=== PATIENT | male | born 1970 | race Caucasian/White ===

== ENCOUNTER 2017-01-08 08:54 | Day surgery (SDC) | payer BC ==
--- NOTE | 2017-01-07 17:35 | PCM.PREANE ---
<Zak Ruiz E - Last Filed: 01/07/17 17:34> Preanesthetic Assessment - ANESTHESIA/TRANSFUSION/FAMILY HX Anesthesia/Transfusion History: Prior Anesthesia Family History of Anesthesia Reaction: No - REVIEW OF SYSTEMS Constitutional: Reports: no symptoms APRON WORKER: Reports: no symptoms Respiratory: Reports: no symptoms Cardiovascular: Reports: no symptoms GI: Reports: no symptoms Other: Reports: none - PHYSICAL ASSESSMENT Vital Signs: Last Vital Signs Temp 36.2 C 01/08/17 09:50 Pulse 74 01/08/17 09:50 Resp 16 01/08/17 09:50 BP 139/86 01/08/17 09:50 Pulse Ox 95 01/08/17 09:50 Height: 1.83 m Weight: 111.13 kg ASA Class: 2 - ALLERGIES Allergies/Adverse Reactions: Allergies Allergy/AdvReac Type Severity Reaction Status Date / Time No Known Allergies Allergy Verified 01/05/17 09:28 - ANESTHESIA PLAN Anesthesia Type Planned: MAC - ACKNOWLEDGEMENTS Pt an appropriate candidate for the planned anesthesia: Yes Alternatives and risks of anesthesia discussed w pt/guardian: Yes Pt/Guardian understands and agree with anesthesia plan: Yes PreAnesthesia Questionnaire Other HEENT History: top retainer Cardiovascular History: Reports: None Respiratory History: Reports: Other (see below) Other Respiratory History: states "I get winded at times" Gastrointestinal History: Reports: None Genitourinary History: Reports: None Musculoskeletal History: Reports: Fracture Other Musculoskeletal History: surgery for fx arm with plates Neurological History: Reports: None Psychiatric History: Reports: None Endocrine/Metabolic History: Reports: Obesity/BMI 30+ Hematologic History: Reports: None Immunologic History: Reports: None Oncologic (Cancer) History: Reports: None Dermatologic History: Reports: None - Infectious Disease History Infectious Disease History: Reports: None - Past Surgical History Head Surgeries/Procedures: Reports: None HEENT Surgical History: Reports: Adenoidectomy, Tonsillectomy - SUBSTANCE USE Smoking Status *Q: Former Smoker Recreational Drug Use History: No - HOME MEDS Home Medications: Home Meds Multivitamin [Multivitamins] 1 tab PO DAILY 01/05/17 [History] - CURRENT (IN HOUSE) MEDS Current Meds: Current Medications Lactated Ringer's (Ringers, Lactated) 1,000 mls @ 125 mls/hr IV ASDIRECTED [facility] Last Admin: 01/08/17 09:54 Dose: 125 mls/hr Sodium Chloride (Saline Flush) 10 ml FLUSH ASDIRECTED PRN PRN Reason: Keep Vein Open Sodium Chloride (Saline Flush) 2.5 ml FLUSH ASDIRECTED PRN PRN Reason: Keep Vein Open <Zak Cho - Last Filed: 01/08/17 10:19> Preanesthetic Assessment - ANESTHESIA/TRANSFUSION/FAMILY HX Anesthesia/Transfusion History: Prior Anesthesia Family History of Anesthesia Reaction: No - REVIEW OF SYSTEMS Constitutional: Reports: no symptoms APRON WORKER: Reports: no symptoms Respiratory: Reports: no symptoms Cardiovascular: Reports: no symptoms GI: Reports: no symptoms Other: Reports: none - PHYSICAL ASSESSMENT ASA Class: 1 Mental Status: alert & oriented x3 Airway Class: Mallampati = 2 Dentition: Reports: normal dentition ROM/Head Extension: full Respiratory Status: lungs clear to auscultation bilaterally Cardiovascular Status: regular rate & rhythm, normal S1, S2, no murmur - BLOOD Blood Available: No - ANESTHESIA PLAN Preop Beta Lupillo: No Anesthesia Type Planned: MAC - ACKNOWLEDGEMENTS Pt an appropriate candidate for the planned anesthesia: Yes Alternatives and risks of anesthesia discussed w pt/guardian: Yes Pt/Guardian understands and agree with anesthesia plan: Yes PreAnesthesia Questionnaire Other Cardiovascular History: hx of borderline HTN, never on meds for HTN
[~2017-01-08 08:54] MED LIST: Lactated Ringers 1,000 ML IV SCH; Sodium Chloride 0.9% 10 ML Syringe FLUSH PRN; Sodium Chloride 0.9% 2.5 ML Syringe FLUSH PRN
[2017-01-08] MEDS ORDERED: Propofol 200 MG/20 ML SDV ONE ×2 (11:04→11:16)
[2017-01-08] MEDS ORDERED: Lidocaine 2% 5 ML SDV ONE (11:04)
[2017-01-08] MEDS ORDERED: fentaNYL 100 MCG/2 ML SDV ONE (11:04)
[2017-01-08] MEDS ORDERED: Midazolam 1 MG/ML 2 ML SDV ONE (11:04)
--- NOTE | 2017-01-08 11:14 | PCM.POSTAN ---
POST ANESTHESIA ASSESSMENT - MENTAL STATUS Mental Status: alert, oriented - RESPIRATORY Respiratory Status: respiratory rate WNL - CARDIOVASCULAR CV Status: pulse rate WNL - GASTROINTESTINAL GI Status: no symptoms - POST OP HYDRATION Hydration Status: adequate & stable
--- NOTE | 2017-01-08 11:25 | PCM.OPNOTE ---
- General Post-Op/Procedure Note Date of Surgery/Procedure: 01/08/17 Operative Procedure(s): Screening colonoscopy Findings: 1mm sessile rectal polyp Pre Op Diagnosis: Screening colonoscopy Post-Op Diagnosis: Rectal polyp Anesthesia Technique: MAC Primary Surgeon: Abigail Alejandre Condition: Good
--- NOTE | 2017-01-08 12:28 | PCM48HPAN ---
Post Anesthesia Note - EVALUATION WITHIN 48HRS OF ANESTHETIC Vital Signs in Normal Range: Yes Patient Participated in Evaluation: Yes Respiratory Function Stable: Yes Airway Patent: Yes Cardiovascular Function Stable: Yes Hydration Status Stable: Yes Pain Control Satisfactory: Yes Nausea and Vomiting Control Satisfactory: Yes Mental Status Recovered: Yes
--- NOTE | 2017-01-08 18:48 | OR ---
SURGEON: CASIMIRO MONSON MD DATE OF PROCEDURE: 01/08/2017 PREOPERATIVE DIAGNOSIS: Screening colonoscopy in family history of colon cancer. POSTOPERATIVE DIAGNOSIS: Screening colonoscopy in family history of colon cancer. PROCEDURE PERFORMED: Screening colonoscopy. INSTRUMENT USED: Olympus colonoscope. ANESTHESIA: MAC. EXTENT OF EXAM: To the cecum. PREPARATION: Good. LIMITATIONS: None. INDICATIONS: The patient is a 46-year-old male with a past medical history significant for his mother dying in her early 50s of colon cancer. Given this, the patient needs to undergo a screening colonoscopy. We discussed the procedure as well as expected perioperative course. We discussed the risks, including bleeding, infection or damage to surrounding structures, including perforation. The patient verbalized understanding and wishes to proceed. PROCEDURE IN DETAIL: The patient was brought to the endoscopy suite and placed in the left lateral decubitus position. A time-out was completed verifying the patient's name, age, date of , allergies, and procedure to be performed. Monitored anesthesia care was induced and continuous oxygen was provided via face mask throughout the duration of the procedure. After adequate sedation was achieved, a digital rectal exam was performed. This examination was within normal limits. A well lubricated colonoscope was then inserted in the rectum and advanced under direct visualization to the level of cecum. The cecum was identified by both visual and anatomic landmarks. A photograph was taken of the cecal cap as well as with retroflexion of the scope within the cecum. The scope was then fully withdrawn while examining the color, texture, anatomy, and integrity of the mucosa from the cecum to the anal canal. The findings were consistent with normal colonic mucosa. The scope was then brought into the rectum and retroflexed to allow visualization of the anal canal opening. With this maneuver, a small pedunculated 1 cm polyp was noted within the rectum close to the anal canal. This was removed using cold biopsy forceps. The scope was then straightened out and removed from the patient. The procedure was terminated and the patient was transferred to the recovery room in stable condition. The cecum to anus time was 11 minutes. ENDOSCOPIC DIAGNOSIS: Rectal polyp. RECOMMENDATION: Follow up in clinic in 2 weeks. BRAVO BLACKMON /[id number] SCOT
== END 2017-01-08 11:54 | disposition home or self-care (01) ==
LOC: MW.SDS 08:54
PROVIDERS: ATTEND Surgery
PROC: 0DBP8ZZ Excision of Rectum, Via Natural or Artificial Opening Endoscopic (ICD-10-PCS; principal; 2017-01-08)
DX: Z12.11 Encounter for screening for malignant neoplasm of colon (principal); Z80.0 Family history of malignant neoplasm of digestive organs; D12.8 Benign neoplasm of rectum
CPT/HCPCS: 45380; 88305; J2250; J3010; J7120; J2704

== ENCOUNTER 2018-06-24 10:25 | Emergency (ER) | payer BC ==
--- NOTE | 2018-06-24 10:41 | EDM.PDOC ---
ED HPI GENERAL MEDICAL PROBLEM - General Chief Complaint: Laceration Stated Complaint: LT HAND PINKY CUT Time Seen by Provider: 06/24/18 10:38 Source of Information: Reports: Patient History Limitations: Reports: No Limitations - History of Present Illness INITIAL COMMENTS - FREE TEXT/NARRATIVE: HISTORY AND PHYSICAL: []48-year-old male presenting with amputation to the tip of his left fifth finger History of Present Illness: []Patient was loading his boat last night and somehow caught his finger tip Denies any pain at this time Review of Systems: As per history of present illness and below otherwise all systems reviewed and negative. Past medical history: As per history of present illness and as reviewed below otherwise noncontributory. Surgical history: As per history of present illness and as reviewed below otherwise noncontributory. Social history: No reported history of drug or alcohol abuse. Family history: As per history of present illness and as reviewed below otherwise noncontributory. Physical exam: Alert gentleman who answers questions appropriately in full sentences without any shortness of breath nontoxic in appearance. Vital Signs are reviewed. HEENT: Atraumatic, normocehpalic, pupils reactive, negative for conjunctival pallor or scleral icterus, mucous membranes moist, throat clear, neck supple, nontender, trachea midline. Lungs: Clear to auscultation, breath sounds equal bilaterally, chest non tender. Heart: S1S2, regular, negative for clicks, rubs, or JVD. Abdomen: Soft, nondistended, nontender. Negative for masses or hepatossplenmegaly. Negative for costovertebral tenderness. Pelvis: Stable nontender. Genitourinary: Deferred. Rectal: Deferred Extremities: Atraumatic, negative for cords or calf pain. Neurovascular unremarkable. Neuro: Awake, alert, oriented. Cranial nerves II through XII unremarkable. Cerebellum unremarkable. Motor and sensory unremarkable throughout. Exam nonfocal. Digital block with 1% lidocaine 2 left fifth finger and good anesthesia effect noted. Dr.Theresa Glover has been notified of this patient and will come see him as she is out of the OR. 12:50 Dr Glover here with the patient. Diagnostics: []xray left 5th finger Therapeutics: []xray Impression: []amputation of tip left fifth finger Plan: []Follow-up with Dr. Glover as discussed Definitive disposition and diagnosis as appropriate pending reevaluation and review of above. Onset: Sudden Duration: Hour(s): (12) Location: Reports: Upper Extremity, Left Left 5th digit Pain Score (Numeric/FACES): 2 - Related Data Allergies Allergy/AdvReac Type Severity Reaction Status Date / Time No Known Allergies Allergy Verified 06/24/18 10:30 Home Meds: Home Meds Multivitamin [Multivitamins] 1 cap PO DAILY #30 capsule 01/08/17 [Rx] Cephalexin [Keflex] 500 mg PO TID #21 capsule 06/24/18 [Rx] Past Medical History Other HEENT History: top retainer Cardiovascular History: Reports: None Other Cardiovascular History: hx of borderline HTN, never on meds for HTN Respiratory History: Reports: Other (See Below) Other Respiratory History: states "I get winded at times" Gastrointestinal History: Reports: None Genitourinary History: Reports: None Musculoskeletal History: Reports: Fracture Other Musculoskeletal History: surgery for fx arm with plates Neurological History: Reports: None Psychiatric History: Reports: None Endocrine/Metabolic History: Reports: Obesity/BMI 30+ Hematologic History: Reports: None Immunologic History: Reports: None Oncologic (Cancer) History: Reports: None Dermatologic History: Reports: None - Infectious Disease History Infectious Disease History: Reports: None - Past Surgical History Head Surgeries/Procedures: Reports: None HEENT Surgical History: Reports: Adenoidectomy, Tonsillectomy Social & Family History - Family History Family Medical History: Noncontributory - Tobacco Use Smoking Status *Q: Never Smoker - Recreational Drug Use Recreational Drug Use: No ED ROS GENERAL - Review of Systems Review Of Systems: ROS reveals no pertinent complaints other than HPI. ED EXAM, SKIN/RASH Exam: See Below (see dictation) Course - Vital Signs Last Recorded V/S: Last Vital Signs Temp 36.6 C 06/24/18 10:31 Pulse 89 06/24/18 14:10 Resp 16 06/24/18 14:10 BP 142/96 H 06/24/18 14:10 Pulse Ox 98 06/24/18 14:10 - Orders/Labs/Meds Orders: Active Orders 24 hr Category Date Time Status Vaccines to be Administered [RC] PER UNIT ROUTINE Care 06/24/18 11:10 Active Meds: Medications Discontinued Medications Generic Name Dose Route Start Last Admin Trade Name Freq PRN Reason Stop Dose Admin Bupivacaine HCl 10 ml 06/24/18 12:43 06/24/18 13:36 Sensorcaine-Mpf 0.25% INJECT 06/24/18 12:44 10 ml ONETIME ONE Administration Bupivacaine HCl/Epinephrine Bitart 10 ml 06/24/18 12:42 06/24/18 13:41 Marcaine 0.25%/Epinephrine 1:200,000 INJECT 06/24/18 12:43 10 ml ONETIME ONE Administration Diphtheria/Tetanus/Acell Pertussis 0.5 ml 06/24/18 11:10 06/24/18 11:23 Adacel IM 06/24/18 11:11 0.5 ml .ONCE ONE Administration Lidocaine HCl 10 ml 06/24/18 11:09 06/24/18 11:28 Xylocaine-Mpf 1% INJECT 06/24/18 11:10 10 ml ONETIME ONE Administration Departure - Departure Time of Disposition: 14:00 Disposition: Home, Self-Care 01 Clinical Impression: Fingertip amputation - Discharge Information Prescriptions: Cephalexin [Keflex] 500 mg PO TID #21 capsule Instructions: Traumatic Finger Amputation Referrals: PCP,None [Primary Care Provider] - Forms: ED Department Discharge Additional Instructions: The following information is given to patients seen in the emergency department who are being discharged to home. This information is to outline your options for follow-up care. We provide all patients seen in our emergency department with a follow-up referral. The need for follow-up, as well as the timing and circumstances, are variable depending upon the specifics of your emergency department visit. If you don't have a primary care physician on staff, we will provide you with a referral. We always advise you to contact your personal physician following an emergency department visit to inform them of the circumstance of the visit and for follow-up with them and/or the need for any referrals to a consulting specialist. The emergency department will also refer you to a specialist when appropriate. This referral assures that you have the opportunity for followup care with a specialist. All of these measure are taken in an effort to provide you with optimal care, which includes your followup. Under all circumstances we always encourage you to contact your private physician who remains a resource for coordinating your care. When calling for followup care, please make the office aware that this follow-up is from your recent emergency room visit. If for any reason you are refused follow-up, please contact the [facility] emergency department at and asked to speak to the emergency department charge nurse. Follow-up with Dr. Glover in 2 weeks please call to make an appointment [facility] Plastic Surgery [address], [address] [place] [address] - My Orders Last 24 Hours: My Active Orders 06/24/18 11:10 Vaccines to be Administered [RC] PER UNIT ROUTINE - Assessment/Plan Last 24 Hours: My Active Orders 06/24/18 11:10 Vaccines to be Administered [RC] PER UNIT ROUTINE
[2018-06-24] MEDS ORDERED: Diphtheria,Pertussis(Acell),Tetanus Vaccine 0.5 ML Syringe IM ONE (11:10)
--- NOTE | 2018-06-24 11:15 | CR ---
EXAMINATION: Left hand, fifth digit HISTORY: Amputation COMPARISON: None TECHNIQUE: 3 views FINDINGS/IMPRESSION: Amputation is noted involving the distal fifth phalanx, extending through the tu ft. The remaining osseous structures and joint spaces appear intact. Bone mineralization otherwise ap pears normal.
[2018-06-24] MEDS ORDERED: Bupivacaine 0.25%/EPINEPHrine 1:200,000 10 ML SDV INJECT ONE (12:42)
[2018-06-24] MEDS ORDERED: Bupivacaine 0.25% 10 ML SDV INJECT ONE (12:43)
--- NOTE | 2018-06-24 22:11 | PCM.OPNOTE ---
- General Post-Op/Procedure Note Date of Surgery/Procedure: 06/24/18 Operative Procedure(s): left small finger revision amputation - transphalangeal Pre Op Diagnosis: left small finger transphalangeal complete amputation Post-Op Diagnosis: Same Anesthesia Technique: Local Primary Surgeon: Christine Glover Access Liaison: Suha Herman Reason Access Liaison Was Necessary: retraction, prepping draping and closure assistance. Complications: None Condition: Good Free Text/Narrative:: During the procedure I was splashed in the mouth with irrigation and sustained a needle stick when cleaning up the local anesthesia from previous injection before my attendance. 30ga 0.5cm needle that was sitting for >1 hour before accidental contact. No risk to patient. Discussed and he will allow testing.
== END 2018-06-24 14:10 | disposition home or self-care (01) ==
LOC: MW.ED 10:25
DX: S68.627A Partial traumatic transphalangeal amputation of left little finger, initial encounter (principal); Z23 Encounter for immunization; W22.8XXA Striking against or struck by other objects, initial encounter
CPT/HCPCS: 64450; 73140; 90471; 90715; 99284; J3490; 99283